=== PATIENT | male | born 1990 | race Two or more races ===

== ENCOUNTER 2024-08-15 18:17 | Emergency (ER) | payer OTHER ==
[~2024-08-15] VITALS: Ht 170.2 cm; Wt 97.1 kg
[2024-08-15] MEDS ORDERED: NIFEDIPINE 10 MG CAPSULE PO ONE (19:00)
[2024-08-15 19:30] LABS: HEMATOCRIT 43.4 % (39.0-48.0); HEMOGLOBIN 15.3 g/dL (13-16.00); MEAN CELL VOLUME 81.7 fL (80.0-100.00); MEAN CORPUSCULAR HEMOGLOBIN 28.7 pg (27.00-32.0); MEAN CORPUSCULAR HGB CONC 35.2 g/dl (32.0-36.0); PLATELET COUNT 229 K/uL (150-450); RED BLOOD COUNT 5.32 M/uL (4.00-6.00); RED CELL DISTRIBUTION WIDTH 13.6 % (11.5-14.5)
[2024-08-15 19:47] LABS: INR 0.99; PARTIAL THROMBOPLASTIN TIME 25.9 SECONDS (22.0-34.0); PROTHROMBIN TIME 10.8 SECONDS (9.0-11.5)
[2024-08-15 19:50] LABS: ALBUMIN 4.1 gm/dL (3.4-5.0); BILIRUBIN TOTAL 0.82 mg/dL (0.3-1.2); CREATININE SERUM 1.02 mg/dL (0.70-1.30); GFR 85.18; GLOBULINA 3.4 G/DL (2.4-3.5); POTASSIUM 3.58 mEq/L (3.5-5.1); TOTAL PROTEIN 7.5 gm/dL (6.4-8.2)
[2024-08-15 20:25] LABS: URINE APPEARANCE Clear; URINE BILIRRUBIN Negative (NEGATIVE); URINE BLOOD Negative; URINE COLOR Yellow; URINE GLUCOSE Negative (NEGATIVE); URINE KETONE 15 (NEGATIVE); URINE LEUKOCYTE Negative; URINE NITRATE Negative; URINE PROTEIN Negative (NEGATIVE)
[2024-08-15 20:28] LABS: URINE BACTERIA 36.7 uL (0.0-1933); URINE RBC 2.7 uL (0.0-20.8); URINE WBC 4.7 uL (0.0-23.2)
[2024-08-15] MEDS ORDERED: COZAAR25 MG PO (21:22)
== END 2024-08-15 21:31 | disposition home or self-care (01) ==
LOC: ER 18:20
PROVIDERS: General Practice
DX: I10 Essential (primary) hypertension (principal); Z87.09 Personal history of other diseases of the respiratory system